=== PATIENT | male | born 1985 | race Hispanic/Latino ===

== ENCOUNTER 2024-12-11 10:44 | Emergency (ER) | payer SELFPAY ==
[2024-12-11] VITALS (19 sets, daily range): BP systolic 110–140; BP diastolic 64–105
[2024-12-11] MEDS: DILAUDID 1 MG IV (11:15)
[2024-12-11] MEDS: ZOFRAN 4 MG IV (11:15)
--- NOTE | 2024-12-11 11:15 | ED.GENMED ---
History of Present Illness
General
Chief Complaint: Musculo-Skeletal Complaint
Source: patient
Exam Limitations: none
Time Seen by Provider: 12/11/24 11:02
Nursing documentation reviewed up to this point in time: agreed with
History of Present Illness
History of Present Illness:
The patient is a 39-year-old man who arrives with severe right shoulder pain after falling directly onto his right shoulder from a ladder. The patient reports he fell about 10 feet. He did not hit his head. He was able to get up and walk after
the fall. He denies neck pain and headache. He denies tingling and numbness of the arms and legs. Patient only complains of right shoulder pain. Shoulder appears slightly deformed. Patient denies numbness in the hands. He denies blood thinners
and all medical problems. Patient reports the ladder slipped, causing him to fall. 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
Past History
Past History
ED Past Medical History: None
ED Past Surgical History: None
Social History
Tobacco: Non-smoker
Alcohol: None
Drug: None
Personal: Other
Living: other
Employment: Employed
Family History
Family History: Other
Review of Systems
Review of Systems
Allergies reviewed?: Yes
All Other Systems: ROS reviewed and negative except as documented in HPI and ROS
Constitutional: Reports no symptoms
EENT: Reports no symptoms
Respiratory: Reports no symptoms
Cardiac: Reports no symptoms
ABD/GI: Reports no symptoms
: Reports no symptoms
Musculoskeletal: Reports joint pain (Right shoulder pain)
Skin: Reports no symptoms
Neurological: Reports no symptoms
Endocrine: Reports no symptoms
Hematologic/Lymphatic: Reports no symptoms
Psychiatric: Reports no symptoms
Phy Exam
Physical Exam
Physical Exam:
Physical Exam
General: Patient is anxious and screaming out in pain. Atraumatic appearing head.
Neck: supple. Nontender C-spine
Heart: s1/s2 regular rate and rhythm, no chest wall deformity. No clavicular tenderness or deformity. No upper back pain or scapular pain bilaterally
Lungs: no acute respiratory distress. clear bilaterally. No spinal tenderness of the C, T and L spine
Abdomen: Soft, nontender
Neuro: alert and oriented. no focal neurological deficits
Skin: no rash
Psychiatric: well kept. interactive and cooperative
Extremities: Strong pulses in the upper and lower left and right extremities bilaterally. Nontender hips and pelvis. Nontender bilateral lower extremities. Nontender left upper extremity. Deformity and tenderness of right
shoulder.
Course
Orders/Labs/Results
Orders:
Orders
12/11/24 11:06
HYDROmorphone [Dilaudid] 1 mg IV NOW STA
12/11/24 11:07
HYDROmorphone [Dilaudid] 1 mg .ROUTE .STK-MED ONE
Ondansetron Injectable [Zofran] 4 mg .ROUTE .STK-MED ONE
Ondansetron Injectable [Zofran] 4 mg IV NOW STA
CR Shoulder - Right 1 View Urgent
Reason For Exam: fall from ladder, R shoulder pain
12/11/24 11:08
Humerus, Right 2 Views [CR Humerus - Right Min 2 View*] Urgent
Comment:
Reason For Exam: trauma
12/11/24 11:41
Propofol [Diprivan] 20 ml .ROUTE .STK-MED
12/11/24 11:52
Propofol [Diprivan] 20 ml .ROUTE .STK-MED
12/11/24 11:57
CR Shoulder - Right 1 View Stat
Comment: portable
Reason For Exam: post reduction
Abnormal Lab Results
12/11/24
12:05
POC Glucose 116 H mg/dl
(70-99)
Vital Signs
Initial and Last Documented VS:
Initial Vital Signs
Pulse Resp BP
63 28 139/105
12/11/24 11:19 12/11/24 11:19 12/11/24 11:19
Last Documented Vital Signs
Temp Pulse Resp BP Pulse Ox
98.0 F 67 17 132/72 100
12/11/24 12:30 12/11/24 12:35 12/11/24 12:35 12/11/24 12:35 12/11/24 12:30
Procedures
Moderate Sedation
ASA Risk Score: Class I
Chart and allergies reviewed: Yes
Consent for anesthesia obtained: Yes
Time out completed (validating right patient & procedure): Yes
Moderate Sedation Start Time(when first medication is given): 11:48
History of difficult intubation: No
Airway free of obstruction: Yes
Patient has a gag reflex: Yes
Patient is able to open mouth: Yes
Patient has no dentures: Yes
Patient has no loose teeth: Yes
Medication administered by Provider during Moderate Sedation: IV Propofol (mg)
Total dose administered: 150
Time drug administered: 11:48
Moderate Sedation Procedure End Time: 11:59
Joint/Fracture Reduction
Right Shoulder:
Indication for procedure:: Right shoulder dislocation
Procedure completed by: Dr. Kim candelaria
Consent form signed: Yes
If no, reason: Emergency procedure
Anesthesia/sedation: Moderate sedation
Injury was: closed
Further treatement: needs further treatment (needs follow-up with orthopedic as outpatient)
Post reduction exam: stable
Capillary Refill: normal
Normal distal neurovascular exam?: Yes
MDM/Problems Addressed
Differential Diagnosis Includes:
Right humeral fracture, right scapular fracture, right shoulder dislocation
MDM/Problems Addressed:
Patient presents with acute right shoulder pain after fall
*Radiology
Radiology exam reviewed: preliminary read by ED provider (Right shoulder x-ray reviewed by me. Right humeral head fracture and right shoulder dislocation. Postreduction x-ray of right shoulder reviewed by me. Reduction successful) and radiology
read reviewed
*Pulse Oximetry
Patient hypoxic: no
*EKG
Interpreted by ED Provider?: NA
*Nursery Manager Interpretation
Rate: normal
Interpretation: normal
Rhythm: sinus
*Critical Care Note
Total Time (30-74mins, 75-104mins- exclusive of procedures): Not Applicable
Data Reviewed
Source: patient
Patient Management
Social determinants of health affecting care: Living situation and Strong social support
Escalation/DeEscalation of care consider admission/obs:
Patient has no sign of head or neck trauma. He has no sign of spinal pain or trauma. Patient feels completely better and is pain-free after reduction. Patient placed in splint and told that he must call orthopedics today to schedule an
appointment to see this week.
ED Attending Note
-
Portions of this chart may have been created with voice recognition software.� Occasional wrong word or��sound alike� substitutions may have occurred due to the inherent limitations of voice recognition software.
Discharge Plan
Departure
Patient Disposition: Home (Routine Discharge)
Date of Disposition: 12/11/24
Time of Disposition: 12:51
Patient with high blood pressure during this ER visit?: Yes
Condition: Good
Covid-19: Not Applicable
Discharge Problem:
Closed dislocation of right shoulder, Fracture of humeral head, right, closed, Fracture of head of humerus, Fall from ladder
Instructions: Shoulder Dislocation (DC), How to Use a Shoulder Sling, Sedation for procedures in adults - ED discharge instructions
Referrals:
Stan Sewell MD [Active] - (Called today to schedule an appointment for this week)
NONE,* [Family Provider] -
Activity Restrictions/Additional Instructions:
Please wear the shoulder sling at all times except for bathing. Please take 600 mg of Advil/ibuprofen every 6-8 hours with food for pain. It is important that you call and follow-up with orthopedics soon as possible to schedule an appointment to
see him in the office
Interventions
Interventions:
*Risk Screen - Suicide Last Done: 12/11/24 11:00
*General Assessment Last Done: 12/11/24 11:00
*Neglect/Abuse Screening Last Done: 12/11/24 11:00
*ED- Fall Risk Assessment Last Done: 12/11/24 11:00
*ED COVID-19 Vaccine History Last Done: 12/11/24 11:00
ED-Musculoskeletal Assessment Last Done: 12/11/24 11:17
Discharge Date and Time
Print Language: HUNGARIAN
[2024-12-11 12:06] LABS: Glucose - Point of Care 116 mg/dl (70-99)
== END 2024-12-11 13:16 | disposition home or self-care (01) ==
LOC: EMR 10:44
PROVIDERS: EMERGENCY PHYSICIAN Emergency Medicine
DX: S43.004A Unspecified dislocation of right shoulder joint, initial encounter (principal); S42.291A Other displaced fracture of upper end of right humerus, initial encounter for closed fracture; W11.XXXA Fall on and from ladder, initial encounter; Y99.0 Civilian activity done for income or pay
CPT/HCPCS: 23650; 99152; 96374; 96375; 99285; 73020; 73060; 82962